=== PATIENT | female | born 1955 | race Caucasian/White ===

== ENCOUNTER 2018-10-25 12:47 | Inpatient (IN) | payer BC ==
[~2018-10-25] VITALS: Ht 167.6 cm; Wt 82.8 kg
[2018-10-25 13:20] VITALS: BP 144/73
[2018-10-25] MEDS ORDERED: HYDROcodone/acetaminophen 5mg/325mg tablet PO PRN (13:35)
[2018-10-25] MEDS ORDERED: acetaminophen 325mg tablet PO PRN (13:35)
[2018-10-25] MEDS ORDERED: pneumococcal 23-VAL P-sac vacc 25 mcg/0.5ml vial IMVAC ONE (13:50)
[2018-10-25] MEDS ORDERED: METO25TA6 PO (13:51)
[2018-10-25] MEDS ORDERED: ASPI81TA52 PO (13:51)
[2018-10-25] MEDS ORDERED: ITRA100C PO (13:52)
[2018-10-25 14:00] LABS: BASOPHILS # (AUTO) 0.1 X10'3 (0-0.2); BASOPHILS % (AUTO) 1.4 % (0-1); EOSINOPHILS % (AUTO) 0 % (0-6); HEMOGLOBIN 13.4 g/dl (12.0-16.0); LYMPHOCYTES # (AUTO) 1.4 X10'3 (1.1-4.8); LYMPHOCYTES % (AUTO) 18.3 % (21-51); MEAN CORPUSCULAR HGB CONC 33.6 g/dL (33.0-36.5); MEAN CORPUSCULAR VOLUME 92.4 FL (78-98); MEAN PLATELET VOLUME 8.7 FL (7.4-10.4); MONOCYTES # (AUTO) 0.7 X10'3 (0-0.9); MONOCYTES % (AUTO) 8.9 % (2-12); NEUTROPHILS # (AUTO) 5.6 X10'3 (1.8-7.7); NEUTROPHILS % (AUTO) 71.4 % (42-75); PLATELET COUNT 257 X10'3 (140-440); RED BLOOD COUNT 4.33 X10'6 (4.20-5.60); RED CELL DISTRIBUTION WIDTH 13.3 % (11.5-14.5); WHITE BLOOD COUNT 7.9 X10'3 (4.5-11.0)
[2018-10-25 14:10] LABS: ALBUMIN 3.2 G/DL (3.4-5.0); ANION GAP 9 (8-16); BLOOD UREA NITROGEN 20 MG/DL (7-18); BUN/CREATININE RATIO 20.6 (6.6-38.0); CALCIUM 9.3 MG/DL (8.5-10.1); CHLORIDE 104 MMOL/L (99-107); CREATININE 0.97 MG/DL (0.40-0.90); GLUCOSE 100 MG/DL (70-104); POTASSIUM 4.7 MMOL/L (3.5-5.1); SODIUM 137 MMOL/L (135-145); TOTAL CARBON DIOXIDE 24.4 MMOL/L (24-32); eGFR 58 ML/MIN
[2018-10-25 14:16] LABS: PARTIAL THROMBOPLASTIN TIME 25 SECONDS (22-32)
[2018-10-25] MEDS ORDERED: ceFAZolin 2gm in dextrose, iso 100 ML IV ONE (16:55)
[2018-10-25 17:16] LABS: CLARITY,URINE CLEAR (Clear); COLOR,URINE YELLOW (Yellow); GLUCOSE, URINE NEGATIVE (Neg); KETONES,URINE NEGATIVE (Neg); LEUKOCYTE ESTERASE ,URINE MODERATE (Neg); NITRITES, URINE NEGATIVE (Neg); OCCULT BLOOD,URINE NEGATIVE (Neg); PH,URINE 6.5 (4.8-8.0); PROTEIN,URINE NEGATIVE (Neg); UROBILINOGEN,URINE 0.2 E.U/dL (0.2-1.0)
[2018-10-25 17:19] LABS: UA COLLECTION TYPE NON-SPECIFIED
[2018-10-25 17:23] LABS: RBC,URINE NONE SEEN /HPF (0-2); WBC,URINE 0-4 /HPF (0-4)
[2018-10-25 17:24] LABS: BACTERIA,URINE NONE SEEN /HPF (Neg); SQUAMOUS EPITHELIAL CELL,UR FEW /LPF (FEW)
--- NOTE | 2018-10-25 18:12 | NUR ---
Patient in room [facility]. I have received report from REBECCA Hassan and had the opportunity to ask questions and assume patient care.
--- NOTE | 2018-10-25 18:15 | NUR ---
Problems reprioritized. Patient report given, questions answered & plan of care reviewed with REBECCA Hernández.
[2018-10-25 20:00] VITALS: BP 152/74
[2018-10-25] MEDS: metoprolol tartrate 25mg tablet PO SCH (21:01)
[2018-10-26] VITALS (20 sets, daily range): BP systolic 82–171; BP diastolic 38–93
--- NOTE | 2018-10-26 06:01 | NUR ---
Problems reprioritized. Patient report given, questions answered & plan of care reviewed with REBECCA Rolon.
--- NOTE | 2018-10-26 06:10 | NUR ---
Patient in room [facility]. I have received report from REBECCA GALLEGO and had the opportunity to ask questions and assume patient care.
[2018-10-26] MEDS: metoprolol tartrate 25mg tablet PO SCH ×2 (08:00→20:00)
[2018-10-26] MEDS ORDERED: ITRACONAZOLE PO SCH (08:00)
[2018-10-26] MEDS ORDERED: ITRACONAZOLE 100MG CAPSULE PO SCH (08:00)
[2018-10-26] MEDS ORDERED: LIDOcaine 1% (10mg/ml) 2ml vial ONE (12:21)
--- NOTE | 2018-10-26 12:36 | NUR ---
PATIENT DOWN TO OR IN BED ACCOMPANIED BY X2 STAFF AND X2 VISITORS.
[2018-10-26] MEDS ORDERED: rocuronium 10mg/ml inj IV ONE ×2 (12:39→15:03)
[2018-10-26] MEDS ORDERED: midazolam 2 mg/2 ml injection ONE ×2 (12:39→12:50)
[2018-10-26] MEDS ORDERED: fentaNYL /PF 50mcg/ml 5ml ampule ONE (12:39)
[2018-10-26] MEDS ORDERED: morphine 4 MG/ML inj SYRINge IV PRN ×4 (12:55→15:10)
[2018-10-26] MEDS ORDERED: ondansetron/PF 4mg/2ml inj IV PRN ×3 (12:55→15:10)
[2018-10-26] MEDS ORDERED: ringers solution, lacted 1,000 ML IV SCH (12:55)
[2018-10-26] MEDS ORDERED: hydrALAZINE 20mg/ml inj. IV PRN (12:55)
[2018-10-26] MEDS ORDERED: labetalol 20mg/4ml (5mg/ml) syringe IV PRN (12:55)
[2018-10-26] MEDS ORDERED: fentaNYL/PF 50MCG/1 ML 2ML syringe IV PRN ×2 (12:55)
[2018-10-26] MEDS ORDERED: sevoflurane 250ml liquid IH ONE (13:11)
[2018-10-26] MEDS ORDERED: glycopyrrolate 0.2mg/ml inj ONE (13:11)
[2018-10-26] MEDS ORDERED: dexamethasone sod phosphate 10mg/ml inj ONE (13:11)
[2018-10-26] MEDS ORDERED: LIDOcaine 2% (20mg/ml) 5ml vial ONE (14:02)
[2018-10-26] MEDS ORDERED: ceFAZolin 1000mg inj ONE ×2 (14:02→14:03)
[2018-10-26] MEDS ORDERED: propofol inj 20 ML IV ONE (14:02)
[2018-10-26] MEDS ORDERED: ondansetron/PF 4mg/2ml inj ONE (14:05)
[2018-10-26] MEDS ORDERED: MIDAZolam 5mg/5ml vial ONE (15:02)
[2018-10-26] MEDS ORDERED: albuterol 2.5 MG/3 ML nebule NEB PRN (15:10)
[2018-10-26] MEDS ORDERED: CADD PCA waste documentation MC PRN (15:10)
[2018-10-26] MEDS ORDERED: metoclopramide 5 mg/ml inj IV PRN (15:10)
[2018-10-26] MEDS ORDERED: naloxone 0.4 mg/ml inj IV PRN (15:10)
[2018-10-26] MEDS ORDERED: HYDROcodone/acetaminophen 10/325mg tab PO PRN (15:10)
--- NOTE | 2018-10-26 15:15 | NUR ---
ADMITTED TO PACU CARE IN ICU 2039 ACCOMPANIED BY ANESTHESIA. INTIAL PHYSICAL ASSESSMENT DONE AND RECORDED. AWAKE AND RESPONSE ON ARRIVE YO PACU, REPORT RECEIVED FROM ANESTHESIA.
--- NOTE | 2018-10-26 15:17 | NUR ---
Problems reprioritized. Patient report given, questions answered & plan of care reviewed with trena krishnan.
[2018-10-26] MEDS ORDERED: propofol 1000mg/100ml bottle 100 ML IV PRN (15:27)
[2018-10-26 15:36] LABS: ABG BASE EXCESS -0.7 mmol/L (-2.0-3.0); ABG HCO3 22.7 mmol/L (22.0-26.0); ABG OXYGEN SATURATION 99.4 % (95-98); ABG PCO2 (T) 33.6 mmHg (35.0-45.0); ABG PH (T) 7.447 (7.350-7.450); ABG PO2 (T) 285.8 mmHg (83-108); FCOHb 0.3 % (0.5-1.5); FMetHb 0.3 % (0.3-1.12); FO2Hb 98.8 % (94-100); MINUTE VOLUME 8 L/min; PEEP 8 cm H2O; RESPIRATORY RATE 12 b/min; RESPIRATORY RATE (OBSERVED) 13 b/min; TIDAL VOLUME 600 mL; TOTAL HEMOGLOBIN 13.8 G/dl (12.0-16.0)
[2018-10-26] MEDS: FENTANYL-0.9 % NACL/PF 100 ML IV PRN (15:45)
[2018-10-26] MEDS ORDERED: metoprolol tartrate 1mg/ml inj IV ONE (16:15)
--- NOTE | 2018-10-26 16:30 | NUR ---
PACU DISCHARGE CRITERIA MET, REPORT GIVEN TO FLOOR. DENIES PAIN OR DISCOMFORT, TRANSFERRED TO ROOM IN STABLE GOOD CONDITION.
[2018-10-26] MEDS ORDERED: hydrALAZINE 20mg/ml inj. IV ONE (16:40)
--- NOTE | 2018-10-26 18:30 | NUR ---
Patient in room ICU 2039. I have received report from Leydi FERNANDEZ, and had the opportunity to ask questions and assume patient care.
--- NOTE | 2018-10-26 19:30 | NUR ---
PT is intubated and lightly sedated, PT is sensitive to sedation, BP is labile. Tolerating vent settings well, O2 sat >97%. CT's to RT chest, Drsg is CDI, serosanguineous drainage noted in tubing. CT's are to wall suction. Bed is locked and low. Bilat soft wrist restraints in place and secure. Will continue to monitor.
[2018-10-26] MEDS: gabapentin 300mg capsule PO SCH ×2 (20:00→20:02)
[2018-10-26] MEDS: potassium Cl 20mEq in D5-NS 1,000 ML IV SCH (20:02)
[2018-10-26] MEDS: ketorolac tromethamine 15mg/ml inj. IV SCH ×2 (20:03→21:09)
[2018-10-26 20:14] LABS: HEMATOCRIT 39.1 % (35.0-45.0); HEMOGLOBIN 13.1 g/dl (12.0-16.0); MEAN CORPUSCULAR HGB CONC 33.5 g/dL (33.0-36.5)
[2018-10-26 20:16] LABS: MEAN CORPUSCULAR VOLUME 92.4 FL (78-98); MEAN PLATELET VOLUME 8.6 FL (7.4-10.4); PLATELET COUNT 232 X10'3 (140-440); RED BLOOD COUNT 4.23 X10'6 (4.20-5.60); RED CELL DISTRIBUTION WIDTH 13.5 % (11.5-14.5); WHITE BLOOD COUNT 14.7 X10'3 (4.5-11.0)
[2018-10-26 20:41] LABS: ALANINE AMINOTRANSFERASE 148 U/L (12-78); ALBUMIN 2.8 G/DL (3.4-5.0); ALBUMIN/GLOBULIN RATIO 0.8 (1.1-1.5); ALKALINE PHOSPHATASE 89 IU/L (46-116); ANION GAP 11 (8-16); ASPARTATE AMINO TRANSFERASE 72 U/L (10-37); BILIRUBIN,TOTAL 0.6 MG/DL (0.1-1.0); BLOOD UREA NITROGEN 19 MG/DL (7-18); CALCIUM 8.2 MG/DL (8.5-10.1); CHLORIDE 105 MMOL/L (99-107); CREATININE 0.95 MG/DL (0.40-0.90); GLUCOSE 151 MG/DL (70-104); MAGNESIUM 1.7 MG/DL (1.5-2.4); PHOSPHORUS 4.3 MG/DL (2.3-4.5); POTASSIUM 4.6 MMOL/L (3.5-5.1); SODIUM 136 MMOL/L (135-145); TOTAL CARBON DIOXIDE 20.4 MMOL/L (24-32); TOTAL PROTEIN 6.1 G/DL (6.4-8.2); eGFR 59 ML/MIN
[2018-10-26 20:44] LABS: BANDS% (MANUAL) 2 % (0-10); BASOPHILS % (MANUAL) 1 % (0-1); LYMPHOCYTES % (MANUAL) 2 % (21-51); MONOCYTES % (MANUAL) 1 % (2-12); NEUTROPHILS % (MANUAL) 94 % (42-75); PLATELET ESTIMATE NORMAL; TOTAL CELLS COUNTED 100
[2018-10-26] MEDS ORDERED: albumin (Human) 5% 250ml 250 ML IV ONE ×2 (21:45)
--- NOTE | 2018-10-26 22:00 | NUR ---
Dr Martinez came to see PT. Informed him of PT's labile BP. Order received for 500ml of 5% Albumin. Will continue to monitor.
[2018-10-26] MEDS: ceFAZolin inj. 1,000 MG in dextrose 5%-water 50ml 50 ML IV SCH (23:56)
[2018-10-27] VITALS (18 sets, daily range): BP systolic 92–158; BP diastolic 46–75
[2018-10-27] MEDS: FENTANYL-0.9 % NACL/PF 100 ML IV PRN (00:20)
--- NOTE | 2018-10-27 01:00 | NUR ---
PT Resting with no s/s of distress noted at this time. VSS. Bed is locked and low, bilat soft wrist restraints remain in place and secure. Will continue to monitor.
[2018-10-27 04:51] LABS: BASOPHILS % (AUTO) 0.1 % (0-1); EOSINOPHILS % (AUTO) 0 % (0-6); HEMATOCRIT 34.9 % (35.0-45.0); HEMOGLOBIN 11.8 g/dl (12.0-16.0); LYMPHOCYTES # (AUTO) 0.4 X10'3 (1.1-4.8); MEAN CORPUSCULAR HEMOGLOBIN 31.2 PG (27.0-31.0); MEAN CORPUSCULAR HGB CONC 33.8 g/dL (33.0-36.5); MEAN CORPUSCULAR VOLUME 92.3 FL (78-98); MEAN PLATELET VOLUME 9.4 FL (7.4-10.4); MONOCYTES # (AUTO) 0.4 X10'3 (0-0.9); MONOCYTES % (AUTO) 3.4 % (2-12); NEUTROPHILS # (AUTO) 11.9 X10'3 (1.8-7.7); NEUTROPHILS % (AUTO) 93.5 % (42-75); PLATELET COUNT 216 X10'3 (140-440); RED BLOOD COUNT 3.79 X10'6 (4.20-5.60); RED CELL DISTRIBUTION WIDTH 13.5 % (11.5-14.5); WHITE BLOOD COUNT 12.7 X10'3 (4.5-11.0)
[2018-10-27] MEDS: potassium Cl 20mEq in D5-NS 1,000 ML IV SCH ×2 (05:25→16:07)
[2018-10-27 05:45] LABS: ALANINE AMINOTRANSFERASE 109 U/L (12-78); ALBUMIN 3.1 G/DL (3.4-5.0); ALBUMIN/GLOBULIN RATIO 1.1 (1.1-1.5); ALKALINE PHOSPHATASE 74 IU/L (46-116); ANION GAP 12 (8-16); ASPARTATE AMINO TRANSFERASE 46 U/L (10-37); BILIRUBIN,TOTAL 0.7 MG/DL (0.1-1.0); BLOOD UREA NITROGEN 21 MG/DL (7-18); BUN/CREATININE RATIO 24.7 (6.6-38.0); CALCIUM 8.2 MG/DL (8.5-10.1); CHLORIDE 106 MMOL/L (99-107); CREATININE 0.85 MG/DL (0.40-0.90); GLUCOSE 163 MG/DL (70-104); MAGNESIUM 1.6 MG/DL (1.5-2.4); PHOSPHORUS 3.5 MG/DL (2.3-4.5); POTASSIUM 4.8 MMOL/L (3.5-5.1); SODIUM 138 MMOL/L (135-145); TOTAL CARBON DIOXIDE 20.4 MMOL/L (24-32); TRIGLYCERIDES 48 MG/DL (20-135); eGFR 67 ML/MIN
--- NOTE | 2018-10-27 07:00 | NUR ---
Problems reprioritized. Patient report given, questions answered & plan of care reviewed with Neena FERNANDEZ.
[2018-10-27] MEDS: metoprolol tartrate 25mg tablet PO SCH ×2 (08:00→20:02)
[2018-10-27 08:10] LABS: ABG BASE EXCESS -3.9 mmol/L (-2.0-3.0); ABG HCO3 20.8 mmol/L (22.0-26.0); ABG OXYGEN SATURATION 97.4 % (95-98); ABG PCO2 (T) 36.4 mmHg (35.0-45.0); ABG PH (T) 7.374 (7.350-7.450); ABG PO2 (T) 102.9 mmHg (83-108); FCOHb 0.3 % (0.5-1.5); FMetHb 0.1 % (0.3-1.12); MINUTE VOLUME 10 L/min; PEEP 5 cm H2O; RESPIRATORY RATE (OBSERVED) 16 b/min; TIDAL VOLUME 864 mL; TOTAL HEMOGLOBIN 12.8 G/dl (12.0-16.0)
[2018-10-27] MEDS: aspirin 81mg tablet.DR PO SCH (08:55)
[2018-10-27] MEDS: ceFAZolin inj. 1,000 MG in dextrose 5%-water 50ml 50 ML IV SCH (08:56)
[2018-10-27] MEDS: ketorolac tromethamine 15mg/ml inj. IV SCH ×2 (09:04→14:00)
[2018-10-27] MEDS: gabapentin 300mg capsule PO SCH ×2 (09:09→20:02)
[2018-10-27] MEDS ORDERED: CADD PCA waste documentation MC PRN (09:45)
[2018-10-27] MEDS ORDERED: naloxone 0.4 mg/ml inj IV PRN (09:45)
[2018-10-27] MEDS ORDERED: HYDROmorphone/NS 1 mg/ml CADD 50 ML IV SCH (09:45)
--- NOTE | 2018-10-27 11:12 | NUR ---
Pt. pressed CADD button twice per shift. Pt. stated she did not like the way medication made her feel although she was in pain and stated she would no longer be pushing the button. Dr. Martinez notified. Pump discontinued and norco given per MD order.
--- NOTE | 2018-10-27 12:13 | NUR ---
PRESSURE ULCER EDUCATION: DEFINITION: A pressure ulcer is an area of skin that breaks down when you stay in one position too long. The constant pressure against the skin reduces the blood flow to that area and the affected tissue dies. CAUSES: "Being bedridden or in a wheelchair "Fragile skin "Having a chronic condition, such as diabetes or vascular disease "Inability to move certain parts of your body without assistance "Older age "Incontinence of urine or stool SYMPTOMS: "A reddened area that DOES NOT turn white when pressed on - this can be the beginning of a pressure ulcer "A blister, deep sore or a crater - these can be advanced pressure ulcers FIRST AID: "Relieve the pressure on this area "Keep the area clean and dry "Call your primary doctor if you see any of the above symptoms "DO NOT massage the area "DO NOT use a donut shaped or ring shaped pillow- these actually interfere with the blood flow and cause complications PREVENTION: "Check for pressure ulcers everyday "Change position at least every two hours to relieve pressure "Use items that help relieve pressure- pillows, sheepskin, foam padding, and powders. "Keep skin clean and dry "Eat healthy well balanced meals "Exercise daily IF YOU SEE ANY OF THESE SYMPTOMS WHILE IN THE HOSPITAL - TELL YOUR NURSE IMMEDIATELY. IF YOU SEE ANY OF THESE SYMPTOMS WHILE AT HOME OR HAVE ANY QUESTIONS OR CONCERNS ABOUT PRESSURE ULCERS - CALL YOUR PRIMARY DOCTOR IMMEDIATELY. Addendum: 10/27/18 at 1213 by Delaney Almanza RN Amended: Links added.
[2018-10-27] MEDS: normal saline 1000ml 1,000 ML IV SCH ×2 (13:30→20:03)
[2018-10-27] MEDS: HYDROcodone/acetaminophen 10/325mg tab PO PRN ×2 (16:37→21:00)
[2018-10-27] MEDS ORDERED: NORepinephrine 8mg/ 250ml NS 250 ML IV ONE (18:36)
--- NOTE | 2018-10-27 19:16 | NUR ---
Patient arrived to floor at 1800, chest tube to water seal. Per MD orders, hooked up to suction per MD orders.
[2018-10-28] VITALS: BP 97/67
[2018-10-28] MEDS: potassium Cl 20mEq in D5-NS 1,000 ML IV SCH ×2 (04:37→12:42)
[2018-10-28] MEDS: HYDROcodone/acetaminophen 10/325mg tab PO PRN (05:13)
--- NOTE | 2018-10-28 06:30 | NUR ---
Patient in room [facility]. I have received report from Daja Pedraza RN and had the opportunity to ask questions and assume patient care.
--- NOTE | 2018-10-28 06:33 | NUR ---
Problems reprioritized. Patient report given, questions answered & plan of care reviewed with REBECCA Myers.
[2018-10-28] MEDS: metoprolol tartrate 25mg tablet PO SCH ×2 (07:25→19:43)
[2018-10-28] MEDS: aspirin 81mg tablet.DR PO SCH (07:25)
[2018-10-28] MEDS: gabapentin 300mg capsule PO SCH (07:26)
[2018-10-28 08:00] VITALS: BP 118/49
--- NOTE | 2018-10-28 09:15 | NUR ---
Called Dr. Martinez after receiving a phone call from [facility] that this pt had 5 beat run PVC's/V-tach. Vitals taken, patient asymptomatic. Per MD, ordered 4 gm magnesium replacement, troponin series and EKG timed now. Will continue to monitor.
[2018-10-28] MEDS ORDERED: magnesium 4gm in 100ml NS 100 ML IV ONE (09:20)
[2018-10-28] MEDS: HYDROcodone/acetaminophen 5mg/325mg tablet PO PRN (10:10)
--- NOTE | 2018-10-28 10:45 | NUR ---
Spoke to Dr. Martinez regarding the EKG he ordered this am. Reported to him that patient's EKG findings were slightly different from her original EKG strip on the , reported her most recent vitals of 105/43, HR 53 and that she takes Lopressor. Magnesium being replaced per MD order. No further orders at this time-Dr. Martinez aware.
[2018-10-28 12:00] VITALS: BP 112/90
--- NOTE | 2018-10-28 18:24 | NUR ---
Problems reprioritized. Patient report given, questions answered & plan of care reviewed with REBECCA Long.
--- NOTE | 2018-10-28 18:39 | NUR ---
Patient in room [facility]. I have received report from Lucia FERNANDEZ and had the opportunity to ask questions and assume patient care.
[2018-10-28 19:00] VITALS: BP 115/51
[2018-10-28] MEDS: magnesium hydroxide 30ml (MOM) UD suspension PO SCH (19:43)
[2018-10-29] VITALS: BP 118/63
[2018-10-29] MEDS: HYDROcodone/acetaminophen 10/325mg tab PO PRN ×2 (01:00→15:09)
[2018-10-29] MEDS: potassium Cl 20mEq in D5-NS 1,000 ML IV SCH (05:37)
--- NOTE | 2018-10-29 06:33 | NUR ---
Problems reprioritized. Patient report given, questions answered & plan of care reviewed with Mariaa FERNANDEZ.
[2018-10-29 07:00] VITALS: BP 125/72
[2018-10-29] MEDS: aspirin 81mg tablet.DR PO SCH (07:50)
[2018-10-29] MEDS: magnesium hydroxide 30ml (MOM) UD suspension PO SCH ×2 (07:50→20:00)
[2018-10-29] MEDS: metoprolol tartrate 25mg tablet PO SCH ×2 (07:52→20:00)
[2018-10-29] MEDS: HYDROcodone/acetaminophen 5mg/325mg tablet PO PRN (07:58)
[2018-10-29] MEDS: normal saline 1000ml 1,000 ML IV SCH ×2 (13:20→23:16)
[2018-10-29 13:35] VITALS: BP 120/65
[2018-10-29] MEDS ORDERED: predniSONE 20 mg tablet PO SCH (17:00)
[2018-10-29 18:00] VITALS: BP 121/58
--- NOTE | 2018-10-29 18:19 | NUR ---
Problems reprioritized. Patient report given, questions answered & plan of care reviewed with PRUDENCE RN.
--- NOTE | 2018-10-29 18:39 | NUR ---
Patient in room [facility]. I have received report from Mariaa FERNANDEZ and had the opportunity to ask questions and assume patient care. patient is in the room and shows no sign of distress.
[2018-10-30] VITALS (13 sets, daily range): BP systolic 105–149; BP diastolic 53–91
--- NOTE | 2018-10-30 06:25 | NUR ---
Patient in room [facility]. I have received report from REBECCA Long and had the opportunity to ask questions and assume patient care.
--- NOTE | 2018-10-30 06:25 | NUR ---
Problems reprioritized. Patient report given, questions answered & plan of care reviewed with Marleni FERNANDEZ.
[2018-10-30] MEDS: magnesium hydroxide 30ml (MOM) UD suspension PO SCH ×2 (07:23→19:31)
[2018-10-30] MEDS: metoprolol tartrate 25mg tablet PO SCH ×2 (07:31→19:29)
[2018-10-30] MEDS: aspirin 81mg tablet.DR PO SCH (07:35)
[2018-10-30] MEDS ORDERED: predniSONE 20 mg tablet PO SCH (08:00)
--- NOTE | 2018-10-30 11:59 | NUR ---
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 Pt now s/p right thorascopic pleurodesis with chest tubes in place. Pt on heart healthy diet documented with 75-100% PO intake likely meeting nutrient needs. LBM 10/30. No edema. No nutrition diagnosis at this time. Will continue to follow. Recommendations: 1) Continue heart healthy diet 2) Routine bowel care 3) Wt per rx Addendum: 10/30/18 at [address] Amended: Links added.
[2018-10-30] MEDS: normal saline 1000ml 1,000 ML IV SCH ×4 (12:12→22:40)
[2018-10-30] MEDS ORDERED: midazolam 2 mg/2 ml injection ONE ×2 (14:29→15:03)
[2018-10-30] MEDS ORDERED: fentaNYL/PF 50MCG/1 ML 2ML syringe ONE ×2 (14:30→15:03)
[2018-10-30] MEDS ORDERED: iohexol 350 MG/ML 50ML vial IV ONE (14:30)
[2018-10-30] MEDS ORDERED: LIDOcaine 1% (10mg/ml)w/preservative injection 20ml MDV ONE (14:30)
[2018-10-30] MEDS ORDERED: iohexol 350MG/ML 100ml bottle IV ONE (14:31)
--- NOTE | 2018-10-30 15:30 | NUR ---
PT. RETURNING FROM [facility]. NO ABNORMAL FINDINGS. PT. TO LAY FLAT FOR 6 HOURS OR UNTIL 2129. [facility] WENT THROUGH R FEMOR[facility] FOR L HEART CATH. OCCLUSIVE DRESSING ON R THIGH. NO BLEEDING OR FIRMNESS/BRUISING NOTED. R DORSALIS PEDIS BOUNDING. PT. ALERT AND TALK, HUNGRY. REGULAR DIET ORDERED. POST OP VITALS STARTED AND ARE STABLE AT THIS TIME. NS AT 100 ML/HR ORDERED FOR 10 HOURS THEN DC. WILL CONT. TO MONITOR CLOSELY FOR BLEEDING ON MY SHIFT.
[2018-10-30] MEDS ORDERED: ondansetron/PF 4mg/2ml inj IV PRN (16:05)
[2018-10-30] MEDS ORDERED: OXAZEpam 15mg capsule PO PRN (16:05)
--- NOTE | 2018-10-30 17:57 | NUR ---
NO S/SX BLEEDING NOTED. PT. IS AWARE SHE NEEDS TO REMAIN FLAT AND IMMOBILE UNTIL 2129. SHE HAS EATEN 2 IN AND OUT BURGERS AND IS COMFORTABLE AT THIS TIME.
--- NOTE | 2018-10-30 18:17 | NUR ---
Problems reprioritized. Patient report given, questions answered & plan of care reviewed with Prudence RN.
--- NOTE | 2018-10-30 19:11 | NUR ---
Patient in room [facility]. I have received report from Deja FERNANDEZ and had the opportunity to ask questions and assume patient care.
[2018-10-31] VITALS: BP 102/47
[2018-10-31 05:03] LABS: CHOL/HDL RATIO 2.6 (0.00-4.99); CHOLESTEROL 158 MG/DL (0-200); HDL CHOLESTEROL 60 MG/DL (35-60); LDL CHOLESTEROL 88 MG/DL (50-100); TRIGLYCERIDES 29 MG/DL (20-135)
[2018-10-31] MEDS: normal saline 1000ml 1,000 ML IV SCH (05:16)
--- NOTE | 2018-10-31 06:25 | NUR ---
Patient in room [facility]. I have received report from REBECCA Long and had the opportunity to ask questions and assume patient care.
--- NOTE | 2018-10-31 06:34 | NUR ---
Problems reprioritized. Patient report given, questions answered & plan of care reviewed with Marleni FERNANDEZ.
[2018-10-31 07:00] VITALS: BP 132/61
[2018-10-31] MEDS: magnesium hydroxide 30ml (MOM) UD suspension PO SCH (08:00)
[2018-10-31] MEDS: aspirin 81mg tablet.DR PO SCH (08:44)
[2018-10-31] MEDS: metoprolol tartrate 25mg tablet PO SCH (08:44)
[2018-10-31 11:00] VITALS: BP 114/64
--- NOTE | 2018-10-31 16:20 | NUR ---
Patient discharge home via family and taken from unit via wheelchair with x1 staff. patient alert, oriented and in no apparent distress at time of discharge. All belongings left with patient including discharge instructions. PIV removed with cannula intact. Patient stated an understanding of discharge instructions and was given time for questions and answers.
== END 2018-10-31 16:23 | disposition home or self-care (01) | DRG 164 ==
LOC: SUR 3N 12:47 → PACU 10-26 12:37 → ICU 2S 10-26 15:21 → SUR 3N 10-27 18:00
PROVIDERS: ADMIT Surgery; ATTEND Surgery
PROC: 3E0234Z Introduction of Serum, Toxoid and Vaccine into Muscle, Percutaneous Approach (ICD-10-PCS; 2018-10-25)
PROC: 0W9900Z Drainage of Right Pleural Cavity with Drainage Device, Open Approach (ICD-10-PCS; 2018-10-26)
PROC: 02HV33Z Insertion of Infusion Device into Superior Vena Cava, Percutaneous Approach (ICD-10-PCS; 2018-10-26)
PROC: B548ZZA Ultrasonography of Superior Vena Cava, Guidance (ICD-10-PCS; 2018-10-26)
PROC: 0B5N0ZZ Destruction of Right Pleura, Open Approach (ICD-10-PCS; principal; 2018-10-26 13:11)
PROC: 4A023N7 Measurement of Cardiac Sampling and Pressure, Left Heart, Percutaneous Approach (ICD-10-PCS; 2018-10-30)
PROC: B2111ZZ Fluoroscopy of Multiple Coronary Arteries using Low Osmolar Contrast (ICD-10-PCS; 2018-10-30)
PROC: B2151ZZ Fluoroscopy of Left Heart using Low Osmolar Contrast (ICD-10-PCS; 2018-10-30)
PROC: B41F1ZZ Fluoroscopy of Right Lower Extremity Arteries using Low Osmolar Contrast (ICD-10-PCS; 2018-10-30)
DX: J93.9 Pneumothorax, unspecified (principal); I47.2 Ventricular tachycardia; J43.9 Emphysema, unspecified; I10 Essential (primary) hypertension; I25.10 Atherosclerotic heart disease of native coronary artery without angina pectoris; F32.9 Major depressive disorder, single episode, unspecified; F17.210 Nicotine dependence, cigarettes, uncomplicated; F42.9 Obsessive-compulsive disorder, unspecified; I48.0 Paroxysmal atrial fibrillation; Z85.41 Personal history of malignant neoplasm of cervix uteri; Z88.1 Allergy status to other antibiotic agents; Z23 Encounter for immunization
CPT/HCPCS: 93306; 93458; Z7506; Z7508; 36415; 36600; 71045; 71250; 76937; 80048; 80053; 80061; 81001; 82803; 82948; 83735; 84100; 84478; 84484; 85018; 85025; 85610; 85730; 86885; 86900; 86901; 87081; 90732; 93005; 94002; 94003; 94760; 97116; 97161; 97530; 99152; 99153; A4618; A4620; A6258; A6402; A6449; A7000; A7048; C1758; C1760; C1769; C9250; G0378; J0360; J0690; J1100; J1170; J1644; J1885; J2001; J2250; J2405; J2704; J3010; J3475; J3480; J3490; J7030; J7060; J7120; J7512; P9045; Q9967